=== PATIENT | female | born 1965 | race Caucasian/White ===

== ENCOUNTER 2020-05-13 16:04 | Emergency (ER) | payer OTHER ==
[~2020-05-13] VITALS: Ht 157.5 cm; Wt 63.5 kg
[2020-05-13] MEDS ORDERED: LITHIUM CARBON600 MG PO (16:14)
[2020-05-13] MEDS ORDERED: EFFEXOR XR75 MG PO (16:14)
[2020-05-13] MEDS ORDERED: BUSPIRONE HCL10 MG PO (16:14)
[2020-05-13 17:05] VITALS: BP 139/85
== END 2020-05-13 17:08 | disposition home or self-care (01) ==
LOC: M.ERS 16:04
DX: S93.492A Sprain of other ligament of left ankle, initial encounter (principal); Z79.899 Other long term (current) drug therapy; Z88.0 Allergy status to penicillin; Z88.1 Allergy status to other antibiotic agents; W54.8XXA Other contact with dog, initial encounter; Y93.89 Activity, other specified; Y92.89 Other specified places as the place of occurrence of the external cause; Y99.8 Other external cause status